=== PATIENT | female | born 1960 | race Caucasian/White ===

== ENCOUNTER 2016-09-07 05:56 | Emergency (ER) | payer BC ==
[2016-09-07] MEDS ORDERED: Albuterol/Ipratropium 3.0-0.5 MG/3 ML Neb Soln NEB ONE ×2 (06:24→08:17)
--- NOTE | 2016-09-07 06:25 | EDM.PDOC ---
ED HPI GENERAL MEDICAL PROBLEM - General Chief Complaint: Respiratory Problem Stated Complaint: TROUBLE BREATHING/COLD SYMPTOMS Time Seen by Provider: 09/07/16 06:25 - History of Present Illness INITIAL COMMENTS - FREE TEXT/NARRATIVE: 56-year-old female presents emergency room with increased difficulty breathing and a worsening cold. The patient was seen in the clinic on Wednesday started on prednisone one tablet twice a day, however the patient isn't sure what strength tablet is. She was told to call back on Wednesday if not better, however the patient was doing much better and did not get started on an antibiotic as was the plan if she wasn 't doing better. Starting Wednesday her condition worsened. The patient developed increasing shortness of breath with rest as well as activity her cough became more productive. She was using her albuterol inhaler every 4 hours and this wasn't helping too much. Upon arrival here she is talking in full sentences however her O2 saturation is borderline at 88% at rest occasionally dropping to 86 or 87 during my interview. Chest Pain Score (Numeric/FACES): 5 - Related Data Allergies Allergy/AdvReac Type Severity Reaction Status Date / Time acetaminophen [From Vicodin] Allergy Vomiting Verified 09/07/16 06:08 codeine Allergy Vomiting Verified 09/07/16 06:08 hydrocodone bitartrate Allergy Vomiting Verified 09/07/16 06:08 [From Vicodin] Home Meds: Home Meds Acetaminophen/oxyCODONE [Percocet 325-5 MG] 1 tab PO Q6H PRN #15 tablet [Rx] Aspirin [Low Dose Aspirin EC] 81 mg PO DAILY 01/02/15 [History] Astroven. PO DAILY 01/02/15 [History] Cinnamon Bark [Cinnamon] 500 mg PO BID 01/02/15 [History] Dapagliflozin Propanediol [Farxiga] 5 mg PO DAILY 01/02/15 [History] Ibuprofen [Motrin] 600 mg PO Q8H #20 tablet 01/02/15 [Rx] Krill/Om-3/DHA/EPA/Phospho/Ast [Megared [place]-3 Krill Oil Sfgl] 1 each PO DAILY 01/02/15 [History] Levothyroxine mcg PO DAILY 01/02/15 [History] Lisinopril 20 mg PO DAILY 09/23/15 [History] Montelukast [Singulair] 10 mg PO BEDTIME 01/02/15 [History] Rosuvastatin [Crestor] 5 mg PO DAILY 01/02/15 [History] Saxagliptin HCl/Metformin HCl [Kombiglyze XR 2.5-1,000 MG] 2 each PO DAILY 01/02 [History] Zyrtec. 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 Endocrine/Metabolic History: Reports: Diabetes, Type II, Hypothyroidism - Past Surgical History HEENT Surgical History: Reports: Adenoidectomy, Tonsillectomy Other HEENT Surgeries/Procedures: multiple ear surgeries GI Surgical History: Reports: Cholecystectomy Female Surgical History: Reports: Section Other Female Surgeries/Procedures: x3 Social & Family History - Tobacco Use Smoking Status *Q: Never Smoker Second Hand Smoke Exposure: No - Caffeine Use Caffeine Use: Reports: Coffee, Soda - Alcohol Use Days Per Week of Alcohol Use: 0 - Recreational Drug Use Recreational Drug Use: No ED ROS GENERAL - Review of Systems Review Of Systems: See Below Constitutional: Reports: Chills. Denies: Fever HEENT: Denies: No Symptoms Respiratory: Reports: Shortness of Breath, Wheezing, Cough, Sputum Cardiovascular: Denies: Chest Pain, Claudication, Dyspnea on Exertion, Palpitations, Syncope GI/Abdominal: Reports: No Symptoms : Reports: No Symptoms Neurological: Reports: No Symptoms ED EXAM, GENERAL - Physical Exam Exam: See Below Exam Limited By: No Limitations General Appearance: Alert, No Apparent Distress Eye Exam: Bilateral Eye: Normal Inspection Ears: Normal External Exam, Normal Canal, Hearing Grossly Normal, Normal TMs Nose: Normal Inspection, Normal Mucosa, No Blood Throat/Mouth: Normal Inspection, Normal Lips, Normal Oropharynx, No Airway Compromise Head: Atraumatic, Normocephalic Neck: Normal Inspection, Supple, Non-Tender, Full Range of Motion, Lymphadenopathy (R). No: Lymphadenopathy (L) Respiratory/Chest: No Respiratory Distress, Other (She has bibasilar crackles with inspiratory and expiratory wheezes diminished breath sounds this improved significantly with the nebulizer) Cardiovascular: Regular Rate, Rhythm, No Edema, No Murmur GI/Abdominal: Normal Bowel Sounds, Soft, Non-Tender Extremities: Normal Inspection, No Pedal Edema Neurological: Alert, Oriented Psychiatric: Normal Affect, Normal Mood Course - Vital Signs Last Recorded V/S: Last Vital Signs Temp 36.6 C 09/07/16 06:05 Pulse 78 09/07/16 06:05 Resp 18 09/07/16 06:05 BP 158/62 H 09/07/16 06:05 Pulse Ox 94 L 09/07/16 06:33 - Orders/Labs/Meds Orders: Active Orders 24 hr Category Date Time Status RT Aerosol Therapy [RC] ASDIRECTED Care 09/07/16 06:24 Active Chest 2V [CR] Stat Exams 09/07/16 06:24 Taken Meds: Medications Discontinued Medications Generic Name Dose Route Start Last Admin Trade Name Josephq PRN Reason Stop Dose Admin Albuterol/Ipratropium 3 ml 09/07/16 06:24 09/07/16 06:31 Duoneb 3.0-0.5 Mg/3 Ml NEB 09/07/16 06:25 3 ml ONETIME ONE Administration Azithromycin 500 mg 09/07/16 07:39 09/07/16 08:02 Zithromax PO 09/07/16 07:40 500 mg ONETIME ONE Administration Ceftriaxone Sodium 1 gm 09/07/16 07:39 09/07/16 08:03 Rocephin IM 09/07/16 07:40 1 gm ONETIME ONE Administration Prednisone 60 mg 09/07/16 07:36 09/07/16 08:02 Prednisone PO 09/07/16 07:37 60 mg ONETIME ONE Administration - Re-Assessments/Exams Free Text/Narrative Re-Assessment/Exam: 09/07/16 07:31 She presents to the emergency room with trouble breathing and worsening cold. She was given a DuoNeb treatment which helped significantly with her breathing prior to this her O2 saturation was noted to be around 88%. She is breathing easier after the nebulizer but at times her saturation drops to 86 but at times at rest is in the 90s as well. Chest x-ray does not show clear infiltrate however in the left lower cardiac margin is obstructed and I cannot exclude an infiltrate in the left base. I did discuss this with the patient. She is breathing easier after the nebulizer. The patient is offered hospital admission however she declined this. We will work on getting her a nebulizer for home and home O2. The patient will receive a gram of Rocephin before leaving here and will be started on Zithromax her first dose will be given here. Her prednisone is somewhat of a mystery we're not exactly sure what dose she is on. She'll be started on prednisone 60 mg twice daily with a taper. 09/07/16 08:10 The patient was ambulated per respiratory therapy and her sats went down to 86% on room air. The patient still would like to go home and attempt outpatient treatment. 09/07/16 08:17 The patient will be given another DuoNeb treatment at this time she is doing okay at the pharmacy will not open until 1:00 and we are not able to dispense DuoNeb's from our hospital stock. Departure - Departure Time of Disposition: 07:43 Disposition: Home, Self-Care 01 Clinical Impression: Pneumonia - Discharge Information Prescriptions: Albuterol/Ipratropium [DuoNeb 3.0-0.5 MG/3 ML] 3 ml NEB Q6HRRT #60 neb Azithromycin [Zithromax] 250 mg PO DAILY #4 tablet Cefuroxime [Ceftin] 500 mg PO BID #18 tablet Prednisone [IJD: predniSONE] 20 mg PO Q12H #24 tab Referrals: Tricia Segundo PA [Primary Care Provider] - Forms: ED Department Discharge Additional Instructions: Return to the emergency room with any questions or problems. Followup in the clinic tomorrow for a recheck. You be started on outpatient oxygen use this as directed. You have been started on an outpatient nebulizer. Uses 4 times a day the medication you'll add to this is albuterol with ipratropium. You've been given 2 antibiotics here in the emergency room the first one was Rocephin as well as the injection second Zithromax oral medications both of these will last until tomorrow morning. Starting tomorrow morning he will take Ceftin, or cefuroxime, 500 mg twice daily until gone. Annual take Zithromax one daily for 4 days. Even though he only take it for a few days it will stay in your system for 10 days. Your prednisone has been changed to 60 mg tonight. Then 40 mg twice daily for 3 days. Then 20 mg twice daily for 3 days. Then 20 mg once a day for 3 days. - My Orders Last 24 Hours: My Active Orders 09/07/16 06:24 RT Aerosol Therapy [RC] ASDIRECTED Chest 2V [CR] Stat - Assessment/Plan Last 24 Hours: My Active Orders 09/07/16 06:24 RT Aerosol Therapy [RC] ASDIRECTED Chest 2V [CR] Stat
[2016-09-07] MEDS ORDERED: predniSONE 20 MG Tab PO ONE (07:36)
[2016-09-07] MEDS ORDERED: Azithromycin 250 MG Tab PO ONE (07:39)
[2016-09-07] MEDS ORDERED: cefTRIAXone 1 GM Vial IM ONE (07:39)
[2016-09-07 10:03] VITALS: BP 122/81
--- NOTE | 2016-09-07 13:24 | CR ---
Chest: Two views of the chest were obtained. Comparison: No previous chest x-ray. Heart size and mediastinum are within normal limits. Lungs appear clear. Mild degenerative spurring is noted within the mid and lower thoracic spine. Impression: 1. Degenerative change within the thoracic spine. 2. Nothing acute is identified on two-view chest x-ray. Diagnostic code #2
== END 2016-09-07 09:36 | disposition home or self-care (01) ==
LOC: JD.ED 05:56
DX: J18.9 Pneumonia, unspecified organism (principal); I10 Essential (primary) hypertension; E78.00 Pure hypercholesterolemia, unspecified; E11.9 Type 2 diabetes mellitus without complications; E03.9 Hypothyroidism, unspecified; Z98.890 Other specified postprocedural states; Z90.49 Acquired absence of other specified parts of digestive tract; Z79.82 Long term (current) use of aspirin; Z79.899 Other long term (current) drug therapy; Z79.2 Long term (current) use of antibiotics; Z88.5 Allergy status to narcotic agent; Z88.6 Allergy status to analgesic agent
CPT/HCPCS: 71020; 94640; 94664; 96372; 99285; A9270; J0696; 99284

== ENCOUNTER 2019-05-12 11:37 | Emergency (ER) | payer OTHER ==
[2019-05-12 11:56] VITALS: BP 154/75; PULSE 69
[2019-05-12] MEDS ORDERED: Meclizine 12.5 MG Tab PO ONE (12:38)
[2019-05-12] MEDS ORDERED: Sodium Chloride 0.9% 10 ML Syringe FLUSH PRN (12:38)
[2019-05-12] MEDS ORDERED: Ondansetron 4 MG/2 ML SDV IVPUSH ONE (12:38)
[2019-05-12] MEDS ORDERED: Sodium Chloride 0.9% 1,000 ML IV ONE (12:39)
--- NOTE | 2019-05-12 12:46 | EDM.PDOC ---
ED HPI GENERAL MEDICAL PROBLEM - General Chief Complaint: General Stated Complaint: DIZZINESS Time Seen by Provider: 05/12/19 11:58 Source of Information: Reports: Patient, RN Notes Reviewed History Limitations: Reports: No Limitations - History of Present Illness INITIAL COMMENTS - FREE TEXT/NARRATIVE: Patient is a 59-year-old female who presents to the ED for the evaluation of dizziness and nausea. Patient states that this all started around Wednesday night, and she states that she has had some nausea with about 7 episodes of vomiting since then. Patient states that she is not able to keep much down for food or fluids, she states that crackers have even come back up. She states that the dizziness is most definitely worse with standing or position changes, and better when she rests. Patient states that she has had instances like this in the past before, when she gets an ear infection. She states that she was given meclizine at one point, and this did seem to help her dizziness. She states that she does not have any meclizine at home any longer so could not try this. She does state that she takes some allergy medications, otherwise she denies any past medical health issues. Her primary care provider is Simran Sullivan. - Related Data Allergies Allergy/AdvReac Type Severity Reaction Status Date / Time acetaminophen [From Vicodin] Allergy Vomiting Verified 05/12/19 11:56 codeine Allergy Vomiting Verified 05/12/19 11:56 hydrocodone bitartrate Allergy Vomiting Verified 05/12/19 11:56 [From Vicodin] Home Meds: Home Meds Acetaminophen/oxyCODONE [Percocet 325-5 MG] 1 tab PO Q6H PRN #15 tablet [Rx] Aspirin [Low Dose Aspirin EC] 81 mg PO DAILY 01/02/15 [History] Astroven. PO DAILY 01/02/15 [History] Cinnamon Bark [Cinnamon] 500 mg PO BID 01/02/15 [History] Dapagliflozin Propanediol [Farxiga] 5 mg PO DAILY 01/02/15 [History] Ibuprofen [Motrin] 600 mg PO Q8H #20 tablet 01/02/15 [Rx] Krill/Om-3/DHA/EPA/Phospho/Ast [Megared [place]-3 Krill Oil Sfgl] 1 each PO DAILY 01/02/15 [History] Levothyroxine mcg PO DAILY 01/02/15 [History] Lisinopril 20 mg PO DAILY 01/02/15 [History] Montelukast [Singulair] 10 mg PO BEDTIME 01/02/15 [History] Rosuvastatin [Crestor] 5 mg PO DAILY 01/02/15 [History] Saxagliptin HCl/Metformin HCl [Kombiglyze XR 2.5-1,000 MG] 2 each PO DAILY 01/02 [History] Zyrtec. 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 Neurological History: Reports: Vertigo Endocrine/Metabolic History: Reports: Diabetes, Type II, Hypothyroidism - Past Surgical History HEENT Surgical History: Reports: Adenoidectomy, Tonsillectomy Other HEENT Surgeries/Procedures: multiple ear surgeries GI Surgical History: Reports: Cholecystectomy Female Surgical History: Reports: Section Other Female Surgeries/Procedures: x3 Social & Family History - Tobacco Use Smoking Status *Q: Never Smoker - Caffeine Use Caffeine Use: Reports: None - Recreational Drug Use Recreational Drug Use: No ED ROS GENERAL - Review of Systems Review Of Systems: See Below Constitutional: Denies: Fever, Chills HEENT: Denies: Rhinitis Respiratory: Denies: Shortness of Breath, Cough Cardiovascular: Denies: Chest Pain GI/Abdominal: Reports: Nausea, Vomiting. Denies: Abdominal Pain Neurological: Reports: Dizziness (world spinning dizziness). Denies: Headache ED EXAM, GENERAL - Physical Exam Exam: See Below Exam Limited By: No Limitations General Appearance: Alert, WD/WN, No Apparent Distress Eye Exam: Right Eye: Nystagmus (several rightward tics, this aggravated her dizziness), Bilateral Eye: EOMI, Normal Inspection, PERRL Ears: Normal External Exam, Normal Canal, Hearing Grossly Normal, Normal TMs ( serous fluid noted behind right TM) Nose: Normal Inspection Throat/Mouth: Normal Inspection, Normal Lips, Normal Teeth, Normal Gums, Normal Oropharynx, Normal Voice, No Airway Compromise Head: Atraumatic, Normocephalic Neck: Normal Inspection Respiratory/Chest: No Respiratory Distress, Lungs Clear, Normal Breath Sounds, No Accessory Muscle Use, Chest Non-Tender Cardiovascular: Normal Peripheral Pulses, Regular Rate, Rhythm, No Edema, No Murmur Peripheral Pulses: 3+: Radial (L), Radial (R) GI/Abdominal: Normal Bowel Sounds, Soft, Non-Tender, No Abnormal Bruit Extremities: Normal Inspection, Normal Capillary Refill Neurological: Alert, Oriented, Normal Cognition, No Motor/Sensory Deficits Psychiatric: Normal Affect, Normal Mood Skin Exam: Warm, Dry, Intact, Normal Color, No Rash Course - Vital Signs Last Recorded V/S: Last Vital Signs Temp 97.9 F 05/12/19 11:54 Pulse 69 05/12/19 11:54 Resp 16 05/12/19 11:54 BP 154/75 H 05/12/19 11:54 Pulse Ox 93 L 05/12/19 11:54 - Orders/Labs/Meds Orders: Active Orders 24 hr Category Date Time Status Peripheral IV Care [RC] . DIRECTED Care 05/12/19 12:38 Ordered Sodium Chloride 0.9% [Saline Flush] Med 05/12/19 12:38 Ordered 10 ml FLUSH ASDIRECTED PRN Peripheral IV Insertion Adult [OM.PC] Routine Oth 05/12/19 12:38 Ordered Medication Orders Sodium Chloride (Saline Flush) 10 ml FLUSH ASDIRECTED PRN PRN Reason: Keep Vein Open Last Admin: 05/12/19 12:48 Dose: 10 ml Labs: Laboratory Tests 05/12/19 05/12/19 05/12/19 Range/Units 11:56 12:45 12:45 WBC 10.89 H (3.98-10.04) K/mm3 RBC 5.11 (3.98-5.22) M/mm3 Hgb 14.0 (11.2-15.7) gm/dl Hct 44.4 (34.1-44.9) % MCV 86.9 (79.4-94.8) fl MCH 27.4 (25.6-32.2) pg MCHC 31.5 L (32.2-35.5) g/dl RDW Std Deviation 52.0 H (36.4-46.3) fL Plt Count 355 (182-369) K/mm3 MPV 9.4 (9.4-12.3) fl Neut % (Auto) 81.8 H (34.0-71.1) % Lymph % (Auto) 13.3 L (19.3-51.7) % [place] % (Auto) 4.5 L (4.7-12.5) % Eos % (Auto) 0.2 L (0.7-5.8) Baso % (Auto) 0.1 (0.1-1.2) % Neut # (Auto) 8.91 H (1.56-6.13) K/mm3 Lymph # (Auto) 1.45 (1.18-3.74) K/mm3 [place] # (Auto) 0.49 H (0.24-0.36) K/mm3 Eos # (Auto) 0.02 L (0.04-0.36) K/mm3 Baso # (Auto) 0.01 (0.01-0.08) K/mm3 Manual Slide Review Normal smear Sodium 139 (136-145) mEq/L Potassium 4.0 (3.5-5.1) mEq/L Chloride 101 (98-107) mEq/L Carbon Dioxide 31 (21-32) mEq/L Anion Gap 11.0 (5-15) BUN 13 (7-18) mg/dL Creatinine 0.9 (0.55-1.02) mg/dL Est Cr Clr Drug Dosing 58.12 mL/min Estimated GFR (MDRD) > 60 (>60) mL/min BUN/Creatinine Ratio 14.4 (14-18) Glucose 158 H (74-106) mg/dL POC Glucose 158 H (70-105) mg/dL Calcium 9.2 (8.5-10.1) mg/dL Total Bilirubin 0.3 (0.2-1.0) mg/dL AST 15 (15-37) U/L ALT 30 (14-59) U/L Alkaline Phosphatase 87 (46-116) U/L Total Protein 7.8 (6.4-8.2) g/dl Albumin 3.8 (3.4-5.0) g/dl Globulin 4.0 gm/dL Albumin/Globulin Ratio 1.0 (1-2) Meds: Medications Generic Name Dose Route Start Last Admin Trade Name Freq PRN Reason Stop Dose Admin Sodium Chloride 10 ml 05/12/19 12:38 05/12/19 12:48 Saline Flush FLUSH 10 ml ASDIRECTED PRN Administration Keep Vein Open Discontinued Medications Generic Name Dose Route Start Last Admin Trade Name Freq PRN Reason Stop Dose Admin Sodium Chloride 1,000 mls @ 999 mls/hr 05/12/19 12:39 05/12/19 12:47 Normal Saline IV 05/12/19 13:39 999 mls/hr ONETIME ONE Administration Meclizine HCl 25 mg 05/12/19 12:38 05/12/19 12:52 Antivert PO 05/12/19 12:39 25 mg ONETIME ONE Administration Ondansetron HCl 4 mg 05/12/19 12:38 05/12/19 12:48 Zofran IVPUSH 05/12/19 12:39 4 mg ONETIME ONE Administration - Re-Assessments/Exams Free Text/Narrative Re-Assessment/Exam: 05/12/19 12:45 Patient presents to the ED for evaluation of dizziness and nausea. I do believe that she is suffering from vertigo, however due to her not being able to keep much down for food or fluids for the past 2 days I will run some labs and give her some IV fluids at this time, she will also get 25 mg of meclizine and 4 mg of IV Zofran for initial management. 05/12/19 13:50 Patient's labs are back, demonstrate no acute abnormalities that would need emergent management at today's visit. Patient was reassessed at bedside, states she is feeling much better she is able to move ahead with little dizziness. I will give her some tablets of 25 mg meclizine and some Zofran tablets to discharge her home with general recommendations. Departure - Departure Time of Disposition: 13:51 Disposition: Home, Self-Care 01 Condition: Fair Clinical Impression: Benign positional vertigo Qualifiers: Laterality: unspecified laterality Qualified Code(s): H81.10 - Benign paroxysmal vertigo, unspecified ear - Discharge Information *PRESCRIPTION DRUG MONITORING PROGRAM REVIEWED*: No *COPY OF PRESCRIPTION DRUG MONITORING REPORT IN PATIENT AYALA: No Instructions: Vertigo, [id number], How to Perform the Elba Maneuver Referrals: PCP,None [Primary Care Provider] - Forms: ED Department Discharge Additional Instructions: You were evaluated in the ER today regarding your dizziness and nausea. You were given some IV fluids, and some medications to help with your symptoms, you reported that you did feel better after IV fluids and medications. Your symptoms are most likely due to vertigo, you will be given a prescription for meclizine and Zofran, please use as directed for further vertigo and nausea relief. If you should need more meclizine, you may obtain this as it is an over-the- counter medication, it is commonly marketed as Antivert or Bonine, you can find this by the [employer] or [employer] in any retail space. Please try to keep yourself well rested, and keep yourself hydrated over the next few days, you should be feeling better shortly. If your vertigo does not seem to resolve itself in a few days, there are multiple chiropractors in the area that do provide vertigo management, please do a Google search and find one that would provide you some of the services. Please return to the ER at any time if your symptoms change or worsen. Sepsis Event Note - Evaluation Sepsis Screening Result: No Definite Risk - Focused Exam Vital Signs: Vital Signs Temp Pulse Resp BP Pulse Ox 05/12/19 11:54 97.9 F 69 16 154/75 H 93 L Date Exam was Performed: 05/12/19 Time Exam was Performed: 13:50 - My Orders Last 24 Hours: My Active Orders 05/12/19 12:38 Peripheral IV Care [RC] . DIRECTED Sodium Chloride 0.9% [Saline Flush] 10 ml FLUSH ASDIRECTED PRN Peripheral IV Insertion Adult [OM.PC] Routine - Assessment/Plan Last 24 Hours: My Active Orders 05/12/19 12:38 Peripheral IV Care [RC] . DIRECTED Sodium Chloride 0.9% [Saline Flush] 10 ml FLUSH ASDIRECTED PRN Peripheral IV Insertion Adult [OM.PC] Routine
== END 2019-05-12 14:05 | disposition home or self-care (01) ==
LOC: JD.ED 11:37
DX: H81.10 Benign paroxysmal vertigo, unspecified ear (principal); E78.00 Pure hypercholesterolemia, unspecified; I10 Essential (primary) hypertension; E11.9 Type 2 diabetes mellitus without complications; E03.9 Hypothyroidism, unspecified; Z88.6 Allergy status to analgesic agent; Z88.5 Allergy status to narcotic agent; Z79.82 Long term (current) use of aspirin; Z79.899 Other long term (current) drug therapy; Z79.84 Long term (current) use of oral hypoglycemic drugs; Z79.890 Hormone replacement therapy
CPT/HCPCS: 36415; 80053; 82962; 85025; 96361; 96374; 99284; A9270; J2405; J7030; 99283